=== PATIENT | female | born 1985 | race Caucasian/White ===

== ENCOUNTER → 2017-07-04 | Outpatient (CLI) | payer OTHER ==
[~2017-07-04] MED LIST: NAPROSYN500 MG PO; ULTRAM50 MG PO
== END | disposition home or self-care (01) ==
LOC: CDC 10:07
DX: M25.532 Pain in left wrist (principal); S63.502D Unspecified sprain of left wrist, subsequent encounter; I25.2 Old myocardial infarction
CPT/HCPCS: 93000

== ENCOUNTER → 2018-04-17 | Outpatient (CLI) | payer OTHER | END | disposition home or self-care (01) | LOC: CDC 10:16 | DX: Z01.810 Encounter for preprocedural cardiovascular examination (principal); S63.502D Unspecified sprain of left wrist, subsequent encounter; M25.532 Pain in left wrist; G56.22 Lesion of ulnar nerve, left upper limb | CPT/HCPCS: 93000 ==